=== PATIENT | female | born 1995 | race Caucasian/White ===

== ENCOUNTER 2020-11-29 09:06 | Emergency (ER) | payer SELFPAY ==
[~2020-11-29] VITALS: Ht 167.6 cm; Wt 59.0 kg
[2020-11-29 09:13] VITALS: BP 153/76
--- NOTE | 2020-11-29 09:27 | NUR ---
PT IN WET CLOTHES. PROVIDED CLEAN/DRY GOWN, BLANKET, LINENS AND HELPED CHANGE INTO.
--- NOTE | 2020-11-29 09:44 | NUR ---
25 YEAR OLD FEMALE BIBA AFTER BEIGN FOUND IN [place] X THIS MORNING. PER EMS, PATIENT SMOKED METH LAST NIGHT AND WANDERED INTO [employer] BACKY[employer], FELL ASLEEP. PT DENIES HX OF SMOKING/DRINKING. PT PRESENTED IN WET CLOTHES; HAS BEEN ASSISTED INTO CLEAN/DRY HOSPITAL GOWN. PT DENIES DESIRE TO HURT SELF/OTHERS, DENIES FEAR FOR SAFETY, VERBALIZED HAVING A HOME TO GO TO. PT DENIED DESIRE TO CALL ANYONE TO PROVIDE UPDATE ON STATUS. PT IS NOT PROVIDING INFO REGARDING PMH OR ALLERGIES. AO4, BREATHING EVEN AND UNLABORED, SKIN WARM AND DRY. BED IN LOWEST POSITION, LOCKED, X2 SIDERAILS UP. PMH - UNKNOWN ALLERGIES - UNKNOWN
--- NOTE | 2020-11-29 09:52 | NUR ---
PT TAKEN TO CT
[2020-11-29 10:06] LABS: BASOPHILS % (AUTO) 0.1 % (0.0-2.0); EOSINOPHILS % (AUTO) 0.1 % (0.0-4.0); HEMATOCRIT 37.7 % (36-48); HEMOGLOBIN 12.9 g/dL (12.0-16.0); LYMPHOCYTES # (AUTO) 0.9 K/uL (2.5-16.5); LYMPHOCYTES % (AUTO) 5.5 % (20.5-51.1); MEAN CORPUSCULAR HEMOGLOBIN 30 pg (27-31); MEAN CORPUSCULAR HGB CONC 34 g/dL (33-37); MEAN CORPUSCULAR VOLUME 88.3 fL (80-94); MONOCYTES # (AUTO) 0.6 K/uL (0.8-1.0); MONOCYTES % (AUTO) 3.5 % (1.7-9.3); NEUTROPHILS % (AUTO) 90.8 % (42.2-75.2); PLATELET COUNT (AUTO) 321 K/uL (140-450); RED BLOOD CELL COUNT(AUTO) 4.27 MIL/uL (4.20-5.40); RED CELL DISTRIBUTION WIDTH 13.1 % (11.6-13.7); WHITE BLOOD COUNT (AUTO) 16.5 K/uL (4.8-10.8)
--- NOTE | 2020-11-29 10:25 | NUR ---
MULTIPLE ATTEMPTS MADE FOR IV ACCESS UNSUCESSFUL, ERMD MADE AWARE.
[2020-11-29] MEDS ORDERED: NACL 0.9% 1,000 ML IV ONE (10:30)
--- NOTE | 2020-11-29 10:30 | NUR ---
PT IN BED CALM, NO APPARENT DISTRESS. FOOD AT BEDSIDE.
--- NOTE | 2020-11-29 10:36 | NUR ---
ERMD AT BEDSIDE FOR ULTRASOUND IV
[2020-11-29 10:42] LABS: ALBUMIN 4.2 g/dL (3.4-5.0); ANION GAP 13.2 (8-16); ASPARTATE AMINOTRANSFERASE 18 U/L (15-37); CARBON DIOXIDE 25.7 mmol/L (21-32); CHLORIDE 100 mmol/L (98-107); CREATININE 0.7 mg/dL (0.6-1.3); GFR ARICAN-AMERICAN 130 mL/min (>90); GLUCOSE 82 mg/dL (74-106); POTASSIUM 3.9 mmol/L (3.5-5.1); SODIUM SERUM 135 mmol/L (136-145); TOTAL BILIRUBIN 0.3 mg/dL (0.0-1.0); UREA NITROGEN, BLOOD 10 mg/dL (7-18)
[2020-11-29 10:45] LABS: ACETAMINOPHEN < 0.5 ug/ml (10-30); SALICYLATE < 2.8 mg/dL (2.8-20.0)
--- NOTE | 2020-11-29 11:00 | NUR ---
PT RESTING WITH EYES CLOSED, BREATHING EVEN AND UNLABORED. NO DISTRESS NOTED.
[2020-11-29 11:10] LABS: CKMB RELATIVE INDEX 0.6 (0.0-2.5)
--- NOTE | 2020-11-29 11:32 | NUR ---
PT STATES NO DESIRE TO URINATE. ERMD AWARE. PT IN BED CALM, NO APPARENT DISTRESS.
--- NOTE | 2020-11-29 13:00 | NUR ---
PT RESTING WITH EYES CLOSED, BREATHING EVEN AND UNLABORED. NO DISTRESS NOTED.
[2020-11-29 13:32] LABS: BARBITURATE, URINE NEGATIVE ng/ml (NEG <=200); BENZODIAZEPINE, URINE NEGATIVE ng/mL (NEG <=200); CANNABINOID, URINE NEGATIVE ng/mL (NEG <=50); COCAINE, URINE NEGATIVE ng/mL (NEG <=300); OPIATE, URINE NEGATIVE ng/mL (NEG <=2000); PHENCYCLIDINE SCREEN,URINE NEGATIVE ng/mL (NEG <=25)
[2020-11-29 14:55] VITALS: BP 153/76
--- NOTE | 2020-11-29 14:55 | NUR ---
Patient discharged with v/s stable. Written and verbal after care instructions about methamphetamine abuse given and explained. Patient verbalized understanding. Ambulatory with steady gait. All questions addressed prior to discharge. Advised to follow up with PMD.
== END 2020-11-29 14:55 | disposition home or self-care (01) ==
LOC: EDBD 09:06 → MED 09:06
DX: F12.10 Cannabis abuse, uncomplicated (principal); R41.82 Altered mental status, unspecified
CPT/HCPCS: 36415; 70450; 71045; 80053; 80305; 81025; 82550; 82553; 84484; 85025; 93005; 96360; 99285; G0480; G0482; J7030